=== PATIENT | male | born 1980 | race African-American/Black ===

== ENCOUNTER 2018-03-05 14:14 | Outpatient (CLI) | payer OTHER, MEDICAID ==
--- NOTE | 2018-03-05 16:43 | Ultrasound Report ---
Reason: SUPERFICIAL FOREIGN BODY OF LEFT HAND,SUBSEQUENT E Procedure Date: 03/05/2018 Accession Number: [id number] / [id number] Procedure: US - Ext Limited Non Vascular CPT Code: FULL RESULT: EXAM: RIGHT/LEFT UPPER EXTREMITY ULTRASOUND - LIMITED. EXAM DATE: 03/05/2018 03:47 PM. CLINICAL HISTORY: Superficial foreign body of left hand, subsequent. Prior wood splinter removed at site of symptoms over a month ago with recent recurrence of discomfort. COMPARISON: None. TECHNIQUE: Real-time scanning was performed with static images obtained by both the technologist and the radiologist. FINDINGS: There is a palpable linear foreign body corresponding to a focal area of discoloration along the palmar thenar eminence. Targeted ultrasound demonstrates a sonographic correlate consistent with splinter fragment, visualized as a hyperechoic linear structure 7 mm in length by slightly less than a mm in cross-section. Foreign body is contained within the deep dermis, adjacent to the subcutaneous fat. No significant surrounding fluid. IMPRESSION: 7 mm long retained foreign body/splinter fragment at the site of palpable symptoms left palmar thenar eminence as described. [facility]
== END 2018-03-05 14:15 | disposition home or self-care (01) ==
LOC: DI 14:14
PROVIDERS: ATTEND Family Medicine
DX: S60.552D Superficial foreign body of left hand, subsequent encounter (principal)
CPT/HCPCS: 76882

== ENCOUNTER 2019-03-01 11:30 | Outpatient (CLI) | payer MEDICAID | END 2019-03-01 23:59 | disposition home or self-care (01) | LOC: LAB.R 11:30 | PROVIDERS: ATTEND Family Medicine | DX: J02.9 Acute pharyngitis, unspecified (principal) | CPT/HCPCS: 87070 ==

== ENCOUNTER 2019-07-12 09:12 | Outpatient (CLI) | payer MEDICAID ==
[2019-07-12 13:37] LABS: ALBUMIN 4.6 g/dL (3.2-5.5); ALBUMIN/GLOBULIN RATIO 1.3 (1.0-2.2); BILIRUBIN,TOTAL 1.2 mg/dL (0.2-1.0); CALCIUM 9.2 mg/dL (8.5-10.3); TOTAL PROTEIN 8.1 g/dL (6.7-8.2)
[2019-07-12 13:39] LABS: BASOPHILS # (AUTO) 0.1 10^3/uL (0.0-0.1); BASOPHILS % (AUTO) 1.1 %; EOSINOPHILS # (AUTO) 0.2 10^3/uL (0.0-0.7); EOSINOPHILS % (AUTO) 3.2 %; HGB - HEMOGLOBIN 16.1 g/dL (14.0-18.0); LYMPHOCYTES # (AUTO) 2.3 10^3/uL (1.5-3.5); LYMPHOCYTES % (AUTO) 40.5 %; MEAN CORPUSCULAR HEMOGLOBIN 28.5 pg (27.0-31.0); MEAN CORPUSCULAR HGB CONC 36.3 g/dL (32.0-36.0); MEAN CORPUSCULAR VOLUME 78.7 fL (80.0-94.0); MONOCYTES # (AUTO) 0.6 10^3/uL (0.0-1.0); MONOCYTES % (AUTO) 10.9 %; NEUTROPHILS # (AUTO) 2.5 10^3/uL (1.5-6.6); NEUTROPHILS % (AUTO) 44.1 %; PLT - PLATELET COUNT 207 10^3/uL (130-450); RED BLOOD COUNT 5.64 10^6/uL (4.70-6.10); RED CELL DISTRIBUTION WIDTH 13.3 % (12.0-15.0); WHITE BLOOD COUNT 5.7 x10^3/uL (4.8-10.8)
== END 2019-07-12 23:59 | disposition home or self-care (01) ==
LOC: LAB.WCP 09:12
PROVIDERS: ATTEND Family Medicine
DX: R07.89 Other chest pain (principal)
CPT/HCPCS: 36415; 80053; 82550; 84443; 84484; 85025; 85651